=== PATIENT | male | born 1985 | race Caucasian/White ===

== ENCOUNTER → 2023-05-10 14:38 | Outpatient (BNVA) | payer BC, SELFPAY | PROVIDERS: Family Provider Nurse Practitioner; PCP Nurse Practitioner; Visit Provider Nurse Practitioner | DX: M25.532 Pain in left wrist (principal) | CPT/HCPCS: 73110 ==

== ENCOUNTER 2025-03-22 14:01 | Outpatient (CLI) | payer BC, SELFPAY ==
--- NOTE | 2025-03-22 14:00 | US_ITS ---
WS: [id number] Exam: US soft tissue/extremity [id number] Date/Time of Exam: 03/22/2025 2:10 PM Reason For Exam: R22.31 - Localized swelling, mass and lump, right upper limb The RIGHT axilla is targeted for ultrasound evaluation. Patient directed areas were evaluated. No sign of solid soft tissue mass or nodule. No cysts were identified. No localized soft tissue fluid collection identified. US/US soft tissue/extremity [id number] IMPRESSION: 1. No significant ultrasound finding. The clinically described RIGHT axillary lump is not depicted with ultrasound.
== END 2025-03-22 14:02 | disposition home or self-care (01) ==
PROVIDERS: Family Provider Nurse Practitioner Family; PCP Nurse Practitioner Family; Visit Provider Nurse Practitioner Family
DX: R22.31 Localized swelling, mass and lump, right upper limb (principal)
CPT/HCPCS: 76882